=== PATIENT | female | born 2000 ===

== ENCOUNTER 2018-02-03 11:35 | Emergency (ER) | payer MEDICAID, OTHER ==
[2018-02-03 11:35] VITALS: BMI 29.7
[2018-02-03 11:45] VITALS: BP 93/57; PULSE 79; RESP 16; TEMP 98.2; O2SAT 99
--- NOTE | 2018-02-03 12:10 | ED PDOC ---
Arrival/HPI - General Chief Complaint: Upper Extremity Problem/Injury Time Seen by Provider: 02/03/18 11:58 Historian: Patient - History of Present Illness Narrative History of Present Illness (Text): 02/03/18 12:07 Kwame Quinteros is a 17 year old female, with no significant past medical history, who presents to the emergency department complaining of left shoulder pain for 1 month. Patient notes the pain started out small and got worse over time. She reports that the pain is worse with movement. Patient has been taken Ibuprofen for the pain with minimal relief. Patient denies any fever, chills, chest pain, shortness of breath, nausea, vomiting, diarrhea, back pain, neck pain, headache, dizziness. Denies trauma/injury but reports it started "after I slept wrong." 02/03/18 14:55 Symptom Onset: Gradual Symptom Course: Worsening Activities at Onset: Light Context: Home Past Medical History - Provider Review Nursing Documentation Reviewed: Yes - Past History Past History: No Previous - Tetanus Immunization Tetanus Immunization: Up to Date - Cardiac Hx Cardiac Disorders: No - Pulmonary Hx Respiratory Disorders: Yes Hx Asthma: Yes - Neurological Hx Neurological Disorder: No - HEENT Hx HEENT Disorder: No - Renal Hx Renal Disorder: No - Endocrine/Metabolic Hx Endocrine Disorders: No - Hematological/Oncological Hx Blood Disorders: No - Integumentary Hx Dermatological Disorder: No - Musculoskeletal/Rheumatological Hx Musculoskeletal Disorders: No - Gastrointestinal Hx Gastrointestinal Disorders: No - Genitourinary/Gynecological Hx Genitourinary Disorders: No - Psychiatric Hx Psychophysiologic Disorder: No Hx Substance Use: Yes (CANNABIS) - Past Surgical History Past Surgical History: No Previous - Anesthesia Hx Anesthesia: No Family/Social History - Physician Review Nursing Documentation Reviewed: Yes Family/Social History: Unknown Family HX Smoking Status: Never Smoked Hx Alcohol Use: Yes Frequency of alcohol use: Socially Hx Substance Use: Yes (CANNABIS) Allergies/Home Meds Allergies/Adverse Reactions: Allergies No Known Allergies Allergy (Verified 02/03/18 11:40) Home Medications: Home Meds Medication Instructions Recorded Confirmed No Known Home Med 02/03/18 02/03/18 Review of Systems - Physician Review All systems were reviewed & negative as marked: Yes - Review of Systems Constitutional: Normal Eyes: Normal ENT: Normal Respiratory: Normal. absent: SOB, Cough Cardiovascular: Normal Gastrointestinal: Normal. absent: Abdominal Pain, Diarrhea, Nausea, Vomiting Genitourinary Female: Normal Musculoskeletal: Arthralgias (shoulder pain). absent: Back Pain, Neck Pain Skin: Normal. absent: Rash Neurological: Normal. absent: Headache, Dizziness Endocrine: Normal Hemo/Lymphatic: Normal Psychiatric: Normal Physical Exam - Physical Exam Narrative Physical Exam (Text): 02/03/18 12:11 Constitutional: No acute distress. Head: Normocephalic. Atraumatic. Eyes: PERRL. ENT: Moist mucous membranes. Neck: Supple. Cardiovascular: Regular rate. Chest: No tenderness. Respiratory: Clear to auscultation bilaterally. GI: Soft. Nontender. Nondistended. Back: No CVA tenderness. Musculoskeletal: Pin point tenderness LT. shoulder Skin: No rash. Neurologic: Alert, no focal deficit. Vital Signs Reviewed: Yes Vital Signs Temp Pulse Resp BP Pulse Ox 02/03/18 11:40 98.2 F 79 16 93/57 L 99 Temperature: Afebrile Blood Pressure: Normal Pulse: Regular Respiratory Rate: Normal Appearance: Positive for: Well-Appearing, Non-Toxic, Comfortable Pain Distress: None Mental Status: Positive for: Alert and Oriented X 3 Medical Decision Making ED Course and Treatment: 02/03/18 12:12 Impression: 17 year old female presents to the emergency department complaining of left shoulder pain. Normal ROM, normal strength, distal pulses intact. Pinpoint area of tenderness. Plan: -- Xray Left shoulder -- POC Urine Test -- Toradol -- Reassess and disposition Progress Notes: Patient advised to follow up with PMD for MRI if pain continues. 02/03/18 13:26 Shoulder xray negative. Instructed on importance of following up with PMD for MRI if persistent pain - RAD Interpretation Radiology Orders: 02/03/18 11:59 SHOULDER LEFT [RAD] Stat - Medication Orders Current Medication Orders: Discontinued Medications Ketorolac Tromethamine (Toradol) 60 mg IM STAT STA Stop: 02/03/18 12:07 Last Admin: 02/03/18 12:59 Dose: 60 mg MAYKEL Pain Assessment Document 02/03/18 12:59 MS (Rec: 02/03/18 13:00 MS [id number] Pain Reassessment Is this a pain reassessment? No Sleep Is patient sleeping during reassessment? No Presence of Pain Presence of Pain Yes Pain Scale Used Pain Scale Used Numeric Location Left, Right or Bilateral Left Pain Location Body Site Shoulder Description Description Constant Intensity of Pain at present 7 Pain Behavior Moaning Guarding Rubbing Site IM Administration Charges Document 02/03/18 12:59 MS (Rec: 02/03/18 13:00 MS [id number]) Injection Site MAR Injection Site Left Deltoid Charges for Administration # of IM Administrations 1 - Scribe Statement The provider has reviewed the documentation as recorded by the Scribe Annamarie Fernandez All medical record entries made by the Scribe were at my direction and personally dictated by me. I have reviewed the chart and agree that the record accurately reflects my personal performance of the history, physical exam, medical decision making, and the department course for this patient. I have also personally directed, reviewed, and agree with the discharge instructions and disposition. Disposition/Present on Arrival - Present on Arrival Any Indicators Present on Arrival: No History of DVT/PE: No History of Uncontrolled Diabetes: No Urinary Catheter: No History of Decub. Ulcer: No History Surgical Site Infection Following: None - Disposition Have Diagnosis and Disposition been Completed?: Yes Diagnosis: Shoulder pain, Bursitis Disposition: HOME/ ROUTINE Disposition Time: 13:26 Patient Plan: Discharge Condition: GOOD Discharge Instructions (ExitCare): Bursitis (DC), Shoulder Pain (DC) Additional Instructions: Follow-up with PMD within 2 days. Follow-up for MRI if persistent pain. Return to ED if condition worsens. Forms: [employer] (Irish)
--- NOTE | 2018-02-03 14:51 | RAD ---
PROCEDURE: Radiographs of the Left Shoulder HISTORY: L shoulder pain COMPARISON: No prior. FINDINGS: BONES: Normal. No fracture. JOINTS: Normal. Glenohumeral and acromioclavicular joints preserved. No osteoarthritis. SOFT TISSUES: Normal. OTHER FINDINGS: None. IMPRESSION: Normal radiographs of the left shoulder.
== END 2018-02-03 13:50 | disposition home or self-care (01) ==
LOC: ED 11:35
DX: M75.52 Bursitis of left shoulder (principal); M25.512 Pain in left shoulder
CPT/HCPCS: 73030; 96372; 99283; J1885

== ENCOUNTER 2018-07-05 17:12 | Emergency (ER) | payer SELFPAY ==
[2018-07-05 17:12] VITALS: BMI 29.7
[2018-07-05 17:45] VITALS: RESP 18; O2SAT 100
[2018-07-05] MEDS ORDERED: Penicillin G Benzathine 1.2 Mill Unit/2 ml Syr IM STA (17:45)
--- NOTE | 2018-07-05 17:49 | ED PDOC ---
Arrival/HPI - General Chief Complaint: ENT Problem Time Seen by Provider: 07/05/18 17:33 Historian: Patient - History of Present Illness Narrative History of Present Illness (Text): 07/05/18 17:45 18 yo F c/o 1 month h/o sore throat. Has not seen any medical provider regarding her symptoms. Otherwise denies any SOB, dyspnea, dysphagia, headache, dizziness, fever, URI, rash, N/V. Past Medical History - Past History Past History: No Previous - Infectious Disease Hx of Infectious Diseases: None - Tetanus Immunization Tetanus Immunization: Up to Date - Cardiac Hx Cardiac Disorders: No - Pulmonary Hx Respiratory Disorders: Yes Hx Asthma: Yes - Neurological Hx Neurological Disorder: No - HEENT Hx HEENT Disorder: No - Renal Hx Renal Disorder: No - Endocrine/Metabolic Hx Endocrine Disorders: No - Hematological/Oncological Hx Blood Disorders: No - Integumentary Hx Dermatological Disorder: No - Musculoskeletal/Rheumatological Hx Musculoskeletal Disorders: No - Gastrointestinal Hx Gastrointestinal Disorders: No - Genitourinary/Gynecological Hx Genitourinary Disorders: No - Psychiatric Hx Psychophysiologic Disorder: No Hx Substance Use: Yes (CANNABIS) - Past Surgical History Past Surgical History: No Previous - Anesthesia Hx Anesthesia: No Family/Social History Family/Social History: No Known Family HX Smoking Status: Never Smoked Hx Alcohol Use: Yes Hx Substance Use: Yes (CANNABIS) Allergies/Home Meds Allergies/Adverse Reactions: Allergies No Known Allergies Allergy (Verified 07/05/18 17:39) Home Medications: Home Meds Medication Instructions Recorded Confirmed No Known Home Med 02/03/18 07/05/18 Review of Systems - Review of Systems Constitutional: absent: Fatigue, Fevers ENT: Voice Changes, Sore Throat. absent: Rhinorrhea, Sinus Congestion Respiratory: absent: SOB, Cough Cardiovascular: absent: Chest Pain, Palpitations Gastrointestinal: absent: Abdominal Pain, Diarrhea, Vomiting Skin: absent: Rash, Pruritis, Skin Lesions Neurological: absent: Headache, Dizziness Physical Exam Vital Signs Temp Pulse Resp BP Pulse Ox 07/05/18 17:37 98.3 F 61 18 109/77 100 Temperature: Afebrile Blood Pressure: Normal Pulse: Regular Respiratory Rate: Normal Appearance: Positive for: Well-Appearing, Non-Toxic, Comfortable, Other ( speaking in full sentences, no drooling) Pain Distress: None Mental Status: Positive for: Alert and Oriented X 3 - Systems Exam Head: Present: Atraumatic, Normocephalic Pupils: Present: PERRL Extroacular Muscles: Present: EOMI Conjunctiva: Present: Normal Mouth: Present: Moist Mucous Membranes Pharnyx: Present: ERYTHEMA, EXUDATE, TONSILS ENLARGED. No: Uvular Deviation, Muffled/Hoarse Voice, Strider, Soft Palate/Uvular Edema Neck: Present: Normal Range of Motion. No: Meningeal Signs, MIDLINE TENDERNESS Respiratory/Chest: Present: Clear to Auscultation, Good Air Exchange. No: Respiratory Distress, Accessory Muscle Use Cardiovascular: Present: Regular Rate and Rhythm, Normal S1, S2. No: Murmurs Abdomen: No: Tenderness, Distention, Peritoneal Signs Back: Present: Normal Inspection Upper Extremity: Present: Normal Inspection. No: Cyanosis, Edema Lower Extremity: Present: Normal Inspection. No: Edema Neurological: Present: GCS=15, CN II-XII Intact, Speech Normal Skin: Present: Warm, Dry, Normal Color. No: Rashes Psychiatric: Present: Alert, Oriented x 3, Normal Insight, Normal Concentration Medical Decision Making ED Course and Treatment: 07/05/18 17:48 Plan : - Decadron 10 mg IM - PCN benzathine 1.2 million units IM Patient advised to follow up with ENT referral provided without fail. Take otc motrin/tylenol for pain prn. Return to the ER at any time for any new or worsening symptoms. - Medication Orders Current Medication Orders: Discontinued Medications Dexamethasone (Decadron Inj) 10 mg IM STAT STA Stop: 07/05/18 17:46 Penicillin G Benzathine (Bicillin L-A Inj) 1,200,000 units IM STAT STA PRN Reason: Protocol Stop: 07/05/18 17:46 - PA / SHUTTLE OPERATOR / Resident Statement /DO has reviewed & agrees with the documentation as recorded. Disposition/Present on Arrival - Present on Arrival Any Indicators Present on Arrival: No History of DVT/PE: No History of Uncontrolled Diabetes: No Urinary Catheter: No History of Decub. Ulcer: No History Surgical Site Infection Following: None - Disposition Have Diagnosis and Disposition been Completed?: Yes Diagnosis: Pharyngitis Disposition: HOME/ ROUTINE Disposition Time: 18:00 Patient Plan: Discharge Patient Problems: Current Active Problems Problem Status Onset Pharyngitis Acute Condition: GOOD Discharge Instructions (ExitCare): Sore Throat in Adults Additional Instructions: Thank you for letting us take care of you today. You were treated for pharyngitis. The emergency medical care you received today was directed at your acute symptoms. Take over the counter tylenol or motrin for your symptoms. It may take several days for your symptoms to resolve. Return to the Emergency Department if your symptoms worsen, do not improve, or if you have any other problems. Please contact ENT doctor or the clinic in 2 days for re-evaluation and follow up, have beta quant and US repeated as an outpatient. Bring any paperwork you were given at discharge with you along with any medications you are taking to your follow up visit. Our treatment cannot replace ongoing medical care by a primary care provider (PCP) outside of the emergency department. Thank you for allowing the [facility] team to be part of your care today. Referrals: [facility] [place]] - Follow up with primary Obey Munoz DO [Staff Provider] - Follow up with primary Forms: [employer] (Icelandic), WORK NOTE
[2018-07-05 19:23] VITALS: BP 119/79; PULSE 70; TEMP 98
== END 2018-07-05 19:10 | disposition home or self-care (01) ==
LOC: ED 17:12
DX: J02.9 Acute pharyngitis, unspecified (principal)
CPT/HCPCS: 96372; 99283; J0561; J1100

== ENCOUNTER 2019-01-06 13:48 | Emergency (ER) | payer BC ==
[2019-01-06 13:58] VITALS: BMI 27.3
[2019-01-06 14:26] VITALS: RESP 18
--- NOTE | 2019-01-06 15:19 | RAD ---
Date of service: 01/06/2019 HISTORY: cough/fever COMPARISON: No prior. TECHNIQUE: Chest PA and lateral FINDINGS: LUNGS: No active pulmonary disease. PLEURA: No significant pleural effusion identified. No pneumothorax apparent. CARDIOVASCULAR: No aortic atherosclerotic calcification present. Normal cardiac size. No pulmonary vascular congestion. OSSEOUS STRUCTURES: No significant abnormalities. VISUALIZED UPPER ABDOMEN: Normal. OTHER FINDINGS: None. IMPRESSION: No active disease.
--- NOTE | 2019-01-06 15:27 | ED PDOC ---
Arrival/HPI - General Chief Complaint: Flu-like Symptoms Time Seen by Provider: 01/06/19 13:48 Historian: Patient - History of Present Illness Narrative History of Present Illness (Text): 01/06/19 15:21 18-year-old female with a history of asthma presents today with a 2 day history of cough and nasal congestion body aches and fevers. Patient states she's been taking Motrin and Tylenol for fever last dose was last night. Patient complaining of dry cough. Patient denies shortness of breath or chest pain. No vomiting or diarrhea. No abdominal pain. Patient states she did not get her flu shot this year. Patient states she has had the flu before with similar symptoms. No other complaints Past Medical History - Provider Review Nursing Documentation Reviewed: Yes - Travel History Have you recently traveled outside [place] w/in the past 3 mons?: No - Past History Past History: No Previous - Infectious Disease Hx of Infectious Diseases: None - Tetanus Immunization Tetanus Immunization: Up to Date - Reproductive Currently : No - Cardiac Hx Cardiac Disorders: No - Pulmonary Hx Respiratory Disorders: Yes Hx Asthma: Yes - Neurological Hx Neurological Disorder: No - HEENT Hx HEENT Disorder: No - Renal Hx Renal Disorder: No - Endocrine/Metabolic Hx Endocrine Disorders: No - Hematological/Oncological Hx Blood Disorders: No - Integumentary Hx Dermatological Disorder: No - Musculoskeletal/Rheumatological Hx Musculoskeletal Disorders: No - Gastrointestinal Hx Gastrointestinal Disorders: No - Genitourinary/Gynecological Hx Genitourinary Disorders: No - Psychiatric Hx Psychophysiologic Disorder: No Hx Substance Use: Yes (CANNABIS) - Past Surgical History Past Surgical History: No Previous - Anesthesia Hx Anesthesia: No Family/Social History - Physician Review Nursing Documentation Reviewed: Yes Family/Social History: Unknown Family HX Smoking Status: Never Smoked Hx Alcohol Use: Yes Hx Substance Use: Yes (CANNABIS) Allergies/Home Meds Allergies/Adverse Reactions: Allergies No Known Allergies Allergy (Verified 01/06/19 13:58) Review of Systems - Review of Systems Constitutional: Fatigue, Fevers ENT: absent: Sore Throat, Sinus Congestion Respiratory: Cough. absent: SOB, Sputum, Wheezing Cardiovascular: absent: Chest Pain, Palpitations Gastrointestinal: absent: Abdominal Pain, Nausea, Vomiting Genitourinary Female: absent: Dysuria, Frequency Musculoskeletal: absent: Arthralgias, Back Pain, Neck Pain Skin: absent: Rash, Pruritis Neurological: Headache. absent: Dizziness Psychiatric: absent: Anxiety, Depression, Suicidal Ideation Physical Exam Vital Signs Reviewed: Yes Vital Signs Temp Pulse Resp BP Pulse Ox 01/06/19 14:11 100.5 F H 90 18 118/71 100 Temperature: Febrile Blood Pressure: Normal Pulse: Regular Respiratory Rate: Normal Appearance: Positive for: Well-Appearing, Non-Toxic, Comfortable Pain Distress: None Mental Status: Positive for: Alert and Oriented X 3 - Systems Exam Head: Present: Atraumatic Conjunctiva: Present: Normal Ears: Present: Normal, NORMAL TM Mouth: Present: Moist Mucous Membranes. No: Drooling, Trismus Pharnyx: Present: Normal. No: ERYTHEMA, EXUDATE, Peritonsilar Swelling, Uvular Deviation, Muffled/Hoarse Voice Nose (External): Present: Atraumatic Nose (Internal): Present: Normal Inspection Neck: Present: Normal Range of Motion, Trachea Midline. No: Lymphadenopathy Respiratory/Chest: Present: Clear to Auscultation, Good Air Exchange. No: Respiratory Distress, Accessory Muscle Use, Wheezes, Retracting, Rhonchi, Tachypneic Cardiovascular: Present: Regular Rate and Rhythm Abdomen: No: Tenderness, Distention, Rebound, Guarding Upper Extremity: Present: Normal ROM Lower Extremity: Present: Normal ROM Neurological: Present: GCS=15, Speech Normal Skin: Present: Warm, Dry, Normal Color. No: Rashes Psychiatric: Present: Alert, Oriented x 3 Medical Decision Making ED Course and Treatment: 01/06/19 15:38 Patient is nontoxic well-appearing in no distress. Low-grade fever in ER. Patient with flulike symptoms. Toradol given Tylenol given Chest x-ray shows no infiltrate or effusion Tamiflu given Zithromax Patient with flulike symptoms with a history of asthma we'll treat prophyla ctically with Tamiflu. I advised follow up with primary care physician within the next 2 days. I advised increase fluids and return if symptoms worsen persist or if new symptoms develop. Patient verbalizes understanding of discharge instructions and need for immediate followup. all aspects of this case were discussed the attending of record. IMPRESSION; influenza, cough Motrin one tablet every 6 hours as needed for pain/fever reduction Zithromax one tablet once daily x4 days Tamiflu; 1 tablet twice daily x 5 days. Increase fluids Followup with primary care physician the next 2 days Return if symptoms worsen persist or if new symptoms develop - RAD Interpretation Radiology Orders: 01/06/19 14:38 CHEST TWO VIEWS (PA/LAT) [RAD] Stat - Medication Orders Current Medication Orders: Azithromycin (Zithromax) 500 mg PO STAT STA; Protocol Stop: 01/06/19 15:21 Oseltamivir Phosphate (Tamiflu Cap) 75 mg PO STAT STA; Protocol Stop: 01/06/19 15:21 Discontinued Medications Acetaminophen (Tylenol 325mg Tab) 975 mg PO STAT STA Stop: 01/06/19 14:39 Last Admin: 01/06/19 14:50 Dose: 975 mg Ketorolac Tromethamine (Toradol) 60 mg IM STAT STA Stop: 01/06/19 14:39 Last Admin: 01/06/19 14:50 Dose: 60 mg MAR Pain Assessment Document 01/06/19 14:50 GMD (Rec: 01/06/19 14:50 [facility]MD [id number] Pain Reassessment Is this a pain reassessment? No IM Administration Charges Document 01/06/19 14:50 GMD (Rec: 01/06/19 14:50 GMD [id number]) Injection Site MAR Injection Site Left Deltoid Charges for Administration # of IM Administrations 1 Disposition/Present on Arrival - Present on Arrival Any Indicators Present on Arrival: No History of DVT/PE: No History of Uncontrolled Diabetes: No Urinary Catheter: No History of Decub. Ulcer: No History Surgical Site Infection Following: None - Disposition Have Diagnosis and Disposition been Completed?: Yes Diagnosis: Flu-like symptoms, Cough Disposition: HOME/ ROUTINE Disposition Time: 15:43 Patient Plan: Discharge Condition: GOOD Discharge Instructions (ExitCare): Flu, Adult (DC), Cough, Adult (DC) Additional Instructions: Motrin one tablet every 6 hours as needed for pain/fever reduction Zithromax one tablet once daily x4 days Tamiflu; 1 tablet twice daily x 5 days. Increase fluids Followup with primary care physician the next 2 days Return if symptoms worsen persist or if new symptoms develop Prescriptions: Azithromycin [Zithromax] 250 mg PO DAILY #4 tab Ibuprofen [Motrin] 600 mg PO Q6H PRN #20 tab PRN Reason: pain/fever reduction Oseltamivir Cap [Tamiflu] 75 mg PO BID #10 cap Referrals: Annia Olson MD [Medical Doctor] - Follow up with primary [facility] [employer] [facility] [Outside] - Follow up with primary Forms: [employer] (Portuguese), WORK NOTE
[2019-01-06 15:48] VITALS: BP 112/71
[2019-01-06 16:18] VITALS: PULSE 88; TEMP 99; O2SAT 98
== END 2019-01-06 16:22 | disposition home or self-care (01) ==
LOC: ED 13:48
DX: J11.1 Influenza due to unidentified influenza virus with other respiratory manifestations (principal); R05 Cough
CPT/HCPCS: 71046; 81025; 96372; 99284; J1885

== ENCOUNTER 2019-03-24 13:35 | Emergency (ER) | payer BC ==
[2019-03-24 13:36] VITALS: BMI 27.3
[2019-03-24 13:53] VITALS: O2SAT 97
--- NOTE | 2019-03-24 14:39 | ED PDOC ---
Arrival/HPI - General Historian: Patient - History of Present Illness Narrative History of Present Illness (Text): 03/24/19 14:29 18yr old female presents today with left foot and ankle pain s/p injury yesterday. pt states she slipped and fell twisting the left ankle. pt c/o pain over the medial and lateral aspect of the ankle as well as slight dorsal foot pain. pt denies calf pain. pt states she took motrin today. pt denies proximal fibular pain. pt denies numbness, weakness, tingling in the extremities. no other complaints. <Joie Mckeon - Last Filed: 03/24/19 14:29> <Roberto Oseguera - Last Filed: 03/24/19 17:02> - General Chief Complaint: Lower Extremity Problem/Injury Time Seen by Provider: 03/24/19 13:37 Past Medical History - Provider Review Nursing Documentation Reviewed: Yes - Travel History Have you recently traveled outside [place] w/in the past 3 mons?: No - Past History Past History: No Previous - Infectious Disease Hx of Infectious Diseases: None - Tetanus Immunization Tetanus Immunization: Up to Date - Cardiac Hx Cardiac Disorders: No - Pulmonary Hx Respiratory Disorders: Yes Hx Asthma: Yes - Neurological Hx Neurological Disorder: No - HEENT Hx HEENT Disorder: No - Renal Hx Renal Disorder: No - Endocrine/Metabolic Hx Endocrine Disorders: No - Hematological/Oncological Hx Blood Disorders: No - Integumentary Hx Dermatological Disorder: No - Musculoskeletal/Rheumatological Hx Musculoskeletal Disorders: No - Gastrointestinal Hx Gastrointestinal Disorders: No - Genitourinary/Gynecological Hx Genitourinary Disorders: No - Psychiatric Hx Psychophysiologic Disorder: No Hx Substance Use: Yes (CANNABIS) - Past Surgical History Past Surgical History: No Previous - Anesthesia Hx Anesthesia: No <Joie Mckeon - Last Filed: 03/24/19 14:29> Family/Social History - Physician Review Nursing Documentation Reviewed: Yes Family/Social History: Unknown Family HX Smoking Status: Light Smoker < 10 Cigarettes Daily Hx Alcohol Use: Yes Frequency of alcohol use: Socially Hx Substance Use: Yes (CANNABIS) <Joie Mckeon - Last Filed: 03/24/19 14:29> Allergies/Home Meds <Joie Mckeon - Last Filed: 03/24/19 14:29> <Roberto Oseguera - Last Filed: 03/24/19 17:02> Allergies/Adverse Reactions: Allergies No Known Allergies Allergy (Verified 03/24/19 13:53) Home Medications: Home Meds Medication Instructions Recorded Confirmed No Known Home Med 03/24/19 03/24/19 Review of Systems - Review of Systems Constitutional: absent: Fatigue, Fevers Respiratory: absent: SOB, Cough Cardiovascular: absent: Chest Pain, Palpitations Gastrointestinal: absent: Abdominal Pain, Nausea, Vomiting Genitourinary Female: absent: Dysuria, Frequency, Hematuria Musculoskeletal: Arthralgias (left foot and ankle pain) Skin: absent: Rash, Pruritis Neurological: absent: Headache, Dizziness Psychiatric: absent: Anxiety, Depression <Joie Mckeon - Last Filed: 03/24/19 14:29> Physical Exam Vital Signs Reviewed: Yes Vital Signs Temp Pulse Resp BP Pulse Ox 03/24/19 13:51 98.2 F 98 H 18 115/75 97 Temperature: Afebrile Blood Pressure: Normal Pulse: Regular Respiratory Rate: Normal Appearance: Positive for: Well-Appearing, Non-Toxic, Comfortable Pain Distress: None Mental Status: Positive for: Alert and Oriented X 3 - Systems Exam Head: Present: Atraumatic Mouth: Present: Moist Mucous Membranes Neck: Present: Normal Range of Motion Respiratory/Chest: Present: Clear to Auscultation, Good Air Exchange. No: Respiratory Distress, Accessory Muscle Use Cardiovascular: Present: Regular Rate and Rhythm, Normal S1, S2. No: Murmurs Lower Extremity: Present: NORMAL PULSES, Normal ROM, Tenderness (left foot/ankle; + ttp over medial and lateral malleolus; Full rom of ankle with pain; no achilles tendon tenderness; no erythema; no ecchymosis; minimal tenderness over the dorsal foot. sensation and distal pulses intact. cap refill <2. ), Swelling, Neurovascularly Intact, Capillary Refill < 2 s. No: CALF TENDERNESS, Erythema, Temperature Abnormalties Neurological: Present: GCS=15, Speech Normal Skin: Present: Warm, Dry, Normal Color Psychiatric: Present: Alert, Oriented x 3 <Joie Mckeon - Last Filed: 03/24/19 14:29> Vital Signs Temp Pulse Resp BP Pulse Ox 03/24/19 16:07 98 F 100 H 16 110/70 97 03/24/19 13:51 98.2 F 98 H 18 115/75 97 <Roberto Oseguera - Last Filed: 03/24/19 17:02> Medical Decision Making ED Course and Treatment: 03/24/19 15:30 Patient nontoxic well-appearing in no distress with stable vital signs X-rays of the left ankle: No fracture X-rays of the left foot: No fracture Tylenol given p.o. Patient placed in Aircast, crutches given for ambulation. I discussed all results in depth with the patient advised to followup with the orthopedist within the next 2 days. Advised return if symptoms worsen persist or new symptoms develop I advised the patient that although the xrays show no fracture; there is still a possibility for ligamentous or tendon injury the patient must see the orthopedist for further evaluation patient verbalizes understanding of discharge instructions and need for immediate followup. Patient verbalizes understanding of discharge instructions and need for immediate followup. Impression: Ankle pain, foot pain tylenol every 4 hours as needed for pain. Rest, ice, compression, elevation Use crutches for ambulation Followup with the orthopedist within the next 2 days Followup with primary care physician within the next 2 days Return if symptoms worsen persist or if new symptoms develop Reassessment Condition: Re-examined, Improved - RAD Interpretation Radiology Orders: 03/24/19 14:28 ANKLE LEFT 3 VIEWS ROUTINE [RAD] Stat FOOT LEFT 3 VIEWS ROUTINE [RAD] Stat <Joie Mckeon T - Last Filed: 03/24/19 14:29> - RAD Interpretation Radiology Orders: 03/24/19 14:28 ANKLE LEFT 3 VIEWS ROUTINE [RAD] Stat FOOT LEFT 3 VIEWS ROUTINE [RAD] Stat - Medication Orders Current Medication Orders: Discontinued Medications Acetaminophen (Tylenol 325mg Tab) 975 mg PO STAT STA Stop: 03/24/19 14:29 Last Admin: 03/24/19 14:53 Dose: 975 mg <Roberto Oseguera - Last Filed: 03/24/19 17:02> - 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 <Roberto Oseguera - Last Filed: 03/24/19 17:02> Disposition/Present on Arrival - Present on Arrival Any Indicators Present on Arrival: No History of DVT/PE: No History of Uncontrolled Diabetes: No Urinary Catheter: No History of Decub. Ulcer: No History Surgical Site Infection Following: None - Disposition Have Diagnosis and Disposition been Completed?: Yes Disposition Time: 15:47 Patient Plan: Discharge <Joie Mckeon - Last Filed: 03/24/19 14:29> <Roberto Oseguera - Last Filed: 03/24/19 17:02> - Disposition Diagnosis: Ankle pain, Foot pain Disposition: HOME/ ROUTINE Condition: GOOD Discharge Instructions (ExitCare): Ankle Sprain (DC), Foot Sprain (DC) Additional Instructions: tylenol every 4 hours as needed for pain. Rest, ice, compression, elevation Use crutches for ambulation Followup with the orthopedist within the next 2 days Followup with primary care physician within the next 2 days Return if symptoms worsen persist or if new symptoms develop Referrals: [facility] [Outside] - Follow up with primary [facility] [Outside] - [facility] with [facility] [Outside] - Follow up with primary Jono Pollock DO [Staff Provider] - Follow up with primary Annia Olson MD [Medical Doctor] - Follow up with primary Forms: [employer] (Croatian), WORK NOTE
--- NOTE | 2019-03-24 15:42 | RAD ---
Date of service: 03/24/2019 PROCEDURE: Left Ankle Radiographs. Left Foot Radiographs. HISTORY: ankle pain COMPARISON: None available. TECHNIQUE: 3 views obtained of the left ankle. Three views obtained of the left foot. FINDINGS: BONES: No acute fracture. JOINTS: Ankle mortise maintained. Talar dome intact SOFT TISSUES: Normal. OTHER FINDINGS: None. IMPRESSION: Lateral malleolar soft tissue swelling without demonstrated fracture or dislocation.
[2019-03-24 16:08] VITALS: BP 110/70; PULSE 100; RESP 16; TEMP 98
== END 2019-03-24 16:09 | disposition home or self-care (01) ==
LOC: ED 13:35
DX: M25.572 Pain in left ankle and joints of left foot (principal)